=== PATIENT | male | born 1955 | race Caucasian/White ===

== ENCOUNTER 2023-11-17 10:38 | Inpatient (IN) | payer OTHER ==
[2023-11-17] VITALS (16 sets, daily range): BP systolic 128–149; BP diastolic 86–120
[~2023-11-17] VITALS: Ht 185.4 cm; Wt 83.1 kg
[2023-11-17] MEDS ORDERED: NS 1,000 ML IV ONE ×2 (11:02→11:03)
[2023-11-17] MEDS ORDERED: Heparin Sodium 1000 Units/ML 10ML MDV ONE (11:02)
[2023-11-17] MEDS ORDERED: NS 250 ML IV ONE (11:02)
[2023-11-17] MEDS ORDERED: Verapamil HCL 2.5 MG/ML 2ML Injection ONE (11:02)
[2023-11-17] MEDS ORDERED: Phenylephrine HCl 100 MCG/ML-NS 10MLSYR (1MG/10ML) ONE (11:03)
[2023-11-17] MEDS ORDERED: FentaNYL Citrate 50 MCG/ML 2 ML Injection ONE (11:03)
[2023-11-17] MEDS ORDERED: Atropine Sulfate 0.1 MG/ML 10ML SYR ONE (11:03)
[2023-11-17] MEDS ORDERED: Midazolam HCl 1MG / ML 2ML Vial ONE (11:03)
[2023-11-17 11:08] LABS: BASOPHILS ABSOLUTE AUTO 0.03 K/mm3 (0.00-0.23); BASOPHILS PERCENT AUTO 0 % (0-2); EOSINOPHILS PERCENT AUTO 0 % (0-6); Hematocrit 48.5 % (37.0-53.0); Hemoglobin 16.5 g/dL (13.5-17.5); IMMATURE GRAN ABSOLUTE AUTO 0.06 K/mm3 (0.00-0.10); IMMATURE GRAN PERCENT AUTO 0 % (0-1); LYMPHOCYTES ABSOLUTE AUTO 0.97 K/mm3 (0.84-5.20); LYMPHOCYTES PERCENT AUTO 6 % (21-46); MONOCYTES ABSOLUTE AUTO 0.75 K/mm3 (0.16-1.47); MONOCYTES PERCENT AUTO 5 % (4-13); Mean Corpuscular HGB 31.3 pg (26.0-34.0); Mean Corpuscular Volume 92 fL (80-100); Mean Platelet Volume 9.8 fL (9.1-12.4); NEUTROPHILS ABSOLUTE AUTO 13.56 K/mm3 (1.96-9.15); NEUTROPHILS PERCENT AUTO 88 % (41-73); Platelet Count 306 K/mm3 (150-400); RDW Coefficient Variation 12.4 % (11.7-14.2); RDW Standard Deviation 42.4 fL (35.1-46.3); Red Blood Cell Count 5.27 M/mm3 (4.30-5.90); White Blood Cell Count 15.37 K/mm3 (4.00-11.30)
[2023-11-17] MEDS ORDERED: Tirofiban HCL Monohydrate 3.75 MG/15 ML Vial ONE (11:08)
[2023-11-17] MEDS ORDERED: FentaNYL Citrate 50 MCG/ML 2 ML Injection IV PRN (11:25)
[2023-11-17] MEDS ORDERED: Acetaminophen 325 MG TABLET PO PRN (11:25)
[2023-11-17 11:26] LABS: Albumin, Blood 4.2 g/dL (3.4-5.0); Bilirubin, Total 0.8 mg/dL (0.1-1.0); Bun/Creatinine Ratio 17.3 (12.0-20.0); Calcium, Blood 11.2 mg/dL (8.5-10.1); Creatinine, Blood 0.93 mg/dL (0.60-1.20); Globulin, Blood 4.1 g/dL (2.2-4.0); Potassium, Blood 4.6 mmol/L (3.5-5.5); Total Protein, Blood 8.3 g/dL (6.4-8.2)
[2023-11-17 11:38] LABS: Anti-Xa UFH, PHA Monitoring <0.10 IU/mL; International Normalized Ratio 0.96; Prothrombin Time Results 10.3 Sec (9.7-11.5)
[2023-11-17] MEDS ORDERED: Ondansetron HCl 2 MG / ML 2ML Vial ONE (11:52)
[2023-11-17] MEDS ORDERED: NS 1,000 ML IV SCH (12:30)
[2023-11-17] MEDS ORDERED: Ondansetron HCl 2 MG / ML 2ML Vial IV PRN (12:45)
[2023-11-17] MEDS ORDERED: ASPI81CH PO (13:47)
--- NOTE | 2023-11-17 18:08 | NUR ---
Summary. 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 Pt c/o nausea and chest pain, prn meds given with good effect, see emar. Pain and nausea slowly improved over the afternoon. TR band in place upon arrival, R/radial site intact, no bleeding/swelling noted. TR band deflated to 3ml at this time, site under observation. No acute events during the afternoon, pt able to rest quietly. See chart for further details.
[2023-11-17] MEDS ORDERED: Ticagrelor 90 MG TABLET PO ONE (18:16)
[2023-11-17] MEDS ORDERED: Heparin Sodium,Porcine 5,000 UNIT/0.5 ML SDV SC ONE (18:16)
[2023-11-17] MEDS ORDERED: Nitroglycerin 0.4 MG SUBL SL ONE (18:16)
[2023-11-17] MEDS ORDERED: Aspirin 81 MG Chew PO ONE (18:16)
--- NOTE | 2023-11-17 20:45 | NUR ---
REMAINING AIR REMOVED FROM TR BAND.
[2023-11-17] MEDS ORDERED: Atorvastatin 40 MG Tab PO SCH (21:00)
[2023-11-17] MEDS ORDERED: Ticagrelor 90 MG TABLET PO SCH (21:00)
[2023-11-17] MEDS ORDERED: Metoprolol Tartrate 25 MG Tab PO SCH (21:00)
--- NOTE | 2023-11-17 22:00 | NUR ---
RIGHT RADIAL SITE W/NO BLEEDING OR HEMATOMA. TR BAND REMOVED, SITE CLEANED AND TEGADERM APPLIED.
[2023-11-18] VITALS (45 sets, daily range): BP systolic 99–159; BP diastolic 63–107
[2023-11-18 03:41] LABS: BASOPHILS ABSOLUTE AUTO 0.04 K/mm3 (0.00-0.23); BASOPHILS PERCENT AUTO 0 % (0-2); EOSINOPHILS ABSOLUTE AUTO 0.01 K/mm3 (0.00-0.68); EOSINOPHILS PERCENT AUTO 0 % (0-6); Hematocrit 44.1 % (37.0-53.0); IMMATURE GRAN ABSOLUTE AUTO 0.06 K/mm3 (0.00-0.10); IMMATURE GRAN PERCENT AUTO 0 % (0-1); LYMPHOCYTES ABSOLUTE AUTO 1.62 K/mm3 (0.84-5.20); LYMPHOCYTES PERCENT AUTO 10 % (21-46); MONOCYTES ABSOLUTE AUTO 1.12 K/mm3 (0.16-1.47); MONOCYTES PERCENT AUTO 7 % (4-13); Mean Corpuscular HGB 31.5 pg (26.0-34.0); Mean Corpuscular Volume 93 fL (80-100); Mean Platelet Volume 9.9 fL (9.1-12.4); NEUTROPHILS ABSOLUTE AUTO 13.65 K/mm3 (1.96-9.15); NEUTROPHILS PERCENT AUTO 83 % (41-73); Platelet Count 255 K/mm3 (150-400); RDW Coefficient Variation 12.7 % (11.7-14.2); RDW Standard Deviation 43.5 fL (35.1-46.3); Red Blood Cell Count 4.76 M/mm3 (4.30-5.90)
[2023-11-18 04:02] LABS: Bun/Creatinine Ratio 16.6 (12.0-20.0); Calcium, Blood 10.3 mg/dL (8.5-10.1); Creatinine, Blood 0.84 mg/dL (0.60-1.20); Potassium, Blood 4.6 mmol/L (3.5-5.5)
--- NOTE | 2023-11-18 05:51 | NUR ---
SHIFT SUMMERY PT HAS HAD INTERMITTENT CHEST PAIN THAT HE STATES IS LESS SEVERE THAN PRIOR TO CATH YESTERDAY. HEART RHYTHM HAS HAD NO ACUTE CHANGES AND BP HAS BEEN WNL. PT DID HAVE SOME NAUSEA, NO VOMITING. MEDS FOR PAIN/NAUSEA GIVEN PER EMAR. RIGHT RADIAL SITE IS INTACT W/ NO BLEEDING OR HEMATOMA NOTED. PT HAS VOIDED IN THE URINAL, AFEBRILE. HE IS ALERT AND ORIENTED X4. PT IS ON ROOM AIR W/ OXYGEN SAT >92%. HE HAS HAD NO ACUTE CHANGES OVERNIGHT.
--- NOTE | 2023-11-18 08:08 | NUR ---
CHEST PAIN DR AMOS NOTIFIED OF PT CONTINUED 6 CHEST PAIN. ORDERS RECIEVED FOR MED CHANGES. DR AMOS TO COME SEE PT THIS AM. VSS.
[2023-11-18] MEDS ORDERED: Metoprolol Tartrate 25 MG Tab PO ONE (08:10)
[2023-11-18] MEDS ORDERED: Isosorbide Mononitrate 30 MG TABCR PO ONE (08:10)
[2023-11-18] MEDS ORDERED: Lisinopril 5 MG Tab PO SCH (09:00)
[2023-11-18] MEDS ORDERED: Aspirin 81 MG Chew PO SCH (09:00)
[2023-11-18] MEDS ORDERED: Verapamil HCL 2.5 MG/ML 2ML Injection ONE (09:21)
[2023-11-18] MEDS ORDERED: Heparin Sodium 1000 Units/ML 10ML MDV ONE (09:21)
[2023-11-18] MEDS ORDERED: NS 1,000 ML IV ONE ×2 (09:22→09:58)
[2023-11-18] MEDS ORDERED: NS 250 ML IV ONE (09:22)
[2023-11-18] MEDS ORDERED: FentaNYL Citrate 50 MCG/ML 2 ML Injection ONE (09:58)
[2023-11-18] MEDS ORDERED: Midazolam HCl 1MG / ML 2ML Vial ONE (09:58)
[2023-11-18] MEDS ORDERED: Atropine Sulfate 0.1 MG/ML 10ML SYR ONE (10:52)
[2023-11-18] MEDS ORDERED: Phenylephrine HCl 100 MCG/ML-NS 10MLSYR (1MG/10ML) ONE (10:53)
[2023-11-18] MEDS ORDERED: Tirofiban HCL Monohydrate 3.75 MG/15 ML Vial ONE (10:56)
[2023-11-18] MEDS ORDERED: Nitroglycerin/D5W 250 ML IV SCH (11:40)
[2023-11-18] MEDS ORDERED: Dose Adjust by Pharmacy XX STA (11:53)
[2023-11-18] MEDS ORDERED: Heparin Sodium,Porcine/0.5 NS 500 ML IV SCH (11:55)
--- NOTE | 2023-11-18 11:59 | NUR ---
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 PT IS AWAKE, ALERT, AND ORIENTED. PT WITH TR BAND IN PLACE TO RIGHT RADIAL SITE WITH ARM BOARD IN PLACE. SITE WITHOUT OOZING OR HEMATOMA NOTED. DISTAL PULSE PRESENT. PT COMPLAINING OF CHEST PAIN UPON ARRIVAL. ORDERS RECIEVED FROM DR AMOS TO START NITRO GTT AND TITRATE AND START HEPARIN GTT. PLANS FOR PT TO TRANSFER TO [facility]. PT UPDATED TO PLAN FOR TRANSFER AND PT SPOUSE CALLED AND UPDATED VIA PHONE. VITAL SIGNS STABLE.
--- NOTE | 2023-11-18 17:41 | NUR ---
SHIFT SUMMARY / TRANSFER PT HAS REMAINED AWAKE, ALERT, AND ORIENTED THIS SHIFT. PT TAKEN TO MEDICAL FACILITIES SECTION DIRECTOR THIS SHIFT AND RETURNED WITH RIGHT RADIAL TR BAND. TR BAND REMOVED WITHOUT COMPLICATION. SITE SOFT, NONTENDER, NO HEMATOMA. OPSITE AND ARM BOARD IN PLACE. PT HAS CONTINUED TO COMPLAIN OF CHEST PAIN S/P MEDICAL FACILITIES SECTION DIRECTOR. NITRO GTT AND HEPARIN GTT'S STARTED THIS AFTERNOON. PT REPORTS RELIEF OF CHEST PAIN WITH NITRO GTT INFUSING AT 30 MCG/MIN. PT STOOD UP TO VOID IN TOILET WITH MINIMAL ASSISTANCE. DR AMOS INITIATED TRANSFER PROCESS TO [facility] THIS AFTERNOON. PT WITH ASSIGNED BED AND MD AT [facility]. AWAITING TRANSPORT BY [facility] AT THIS TIME. REPORT CALLED TO FLORINDA HARVEY AT [facility], ALL QUESTIONS ANSWERED.
--- NOTE | 2023-11-18 19:47 | NUR ---
PT LEAVES ICU WITH [facility]. REPORT GIVEN TO EMT. TIME OF DEPARTURE WAS 1939. PT MEDICATD WITH 25 MCG'S FENTANYL IV FOR COMPLAINT OF CHEST PAIN 07/29. DESCRIBES PAIN SUBSTERNAL/EPIGASTRIC PAIN. NITRO DRIP INCREASED TO 35/HOUR.
== END 2023-11-18 19:40 | disposition short-term general hospital (02) | DRG 229 ==
LOC: ER 10:38 → ICUE 11:08
PROVIDERS: Physician Assistant; Student in an Organized Health Care Education/Training Program; ADMIT Family Medicine
PROC: 02C00ZZ Extirpation of Matter from Coronary Artery, One Artery, Open Approach (ICD-10-PCS; principal; 2023-11-17)
PROC: 027035Z Dilation of Coronary Artery, One Artery with Two Drug-eluting Intraluminal Devices, Percutaneous Approach (ICD-10-PCS; 2023-11-17)
PROC: B2111ZZ Fluoroscopy of Multiple Coronary Arteries using Low Osmolar Contrast (ICD-10-PCS; 2023-11-17)
PROC: 4A023N7 Measurement of Cardiac Sampling and Pressure, Left Heart, Percutaneous Approach (ICD-10-PCS; 2023-11-17)
PROC: B2101ZZ Fluoroscopy of Single Coronary Artery using Low Osmolar Contrast (ICD-10-PCS; 2023-11-18)
DX: I21.19 ST elevation (STEMI) myocardial infarction involving other coronary artery of inferior wall (principal); I23.7 Postinfarction angina; E83.52 Hypercalcemia; I48.0 Paroxysmal atrial fibrillation; Z95.5 Presence of coronary angioplasty implant and graft; F10.10 Alcohol abuse, uncomplicated; I25.118 Atherosclerotic heart disease of native coronary artery with other forms of angina pectoris; Z79.82 Long term (current) use of aspirin; I44.0 Atrioventricular block, first degree; I10 Essential (primary) hypertension
CPT/HCPCS: 36415; 71045; 76937; 80048; 80053; 83690; 84484; 85025; 85347; 85520; 85610; 85730; 92920; 93005; 93010; 93306; 93454; 99152; 99153; 99285-25; A9270; C1725; C1757; C1769; C1874; C1887; C1894; C9606; J0461; J1644; J2250; J2371; J2405; J3010; J3246; J7030; J7050; Q9967